=== PATIENT | female | born 1980 | race Caucasian/White ===

== ENCOUNTER 2018-01-18 22:40 | Emergency (ER) | payer BC, SELFPAY ==
[~2018-01-18] VITALS: Ht 165.1 cm; Wt 118.4 kg
[~2018-01-18 22:40] MED LIST: Elite Ob Dha S1 EACH; IBUP800 PO; LEVSOD75 PO; Synthroid75 MCG; Verotin-Gr Cap1 EACH PO
[2018-01-18] MEDS ORDERED: Adipex-P37.5 M1 PO (22:48)
== END 2018-01-18 23:15 | disposition home or self-care (01) ==
LOC: ER 22:40
DX: J34.9 Unspecified disorder of nose and nasal sinuses (principal); Z79.899 Other long term (current) drug therapy; W50.0XXA Accidental hit or strike by another person, initial encounter
CPT/HCPCS: 99282

== ENCOUNTER → 2020-03-14 | Outpatient (CLI) | payer BC ==
[~2020-03-14] MED LIST changes: +Adipex-P37.5 M1 PO
== END | disposition home or self-care (01) ==
LOC: LAB SHORT 10:30 → LAB 10:30
DX: R30.0 Dysuria (principal)
CPT/HCPCS: 87077; 87086; 87186

== ENCOUNTER 2023-10-02 16:08 | Emergency (ER) | payer BC ==
[~2023-10-02] VITALS: Ht 165.1 cm; Wt 93.0 kg
[~2023-10-02 16:08] MED LIST changes: +Cyclobenzaprine5 MG; +EUTHYROX75 MC1 PO; +GABA100; +GABA100 PO; +HYDACE10B; +JENCYCLA0.35 MG PO
[2023-10-02 16:13] VITALS: BP 126/107
[2023-10-02 16:29] LABS: BASOPHILS ABSOLUTE AUTO 0.03 K/mm3 (0.00-0.23); BASOPHILS PERCENT AUTO 0 % (0-2); EOSINOPHILS ABSOLUTE AUTO 0.03 K/mm3 (0.00-0.68); EOSINOPHILS PERCENT AUTO 0 % (0-6); Hematocrit 42.9 % (33.0-51.0); Hemoglobin 14.7 g/dL (11.5-16.0); IMMATURE GRAN ABSOLUTE AUTO 0.03 K/mm3 (0.00-0.10); IMMATURE GRAN PERCENT AUTO 0 % (0-1); LYMPHOCYTES ABSOLUTE AUTO 2.49 K/mm3 (0.84-5.20); LYMPHOCYTES PERCENT AUTO 21 % (21-46); MONOCYTES ABSOLUTE AUTO 0.65 K/mm3 (0.16-1.47); MONOCYTES PERCENT AUTO 5 % (4-13); Mean Corpuscular HGB 30.1 pg (26.0-34.0); Mean Corpuscular HGB Conc 34.3 g/dL (31.5-36.5); Mean Corpuscular Volume 88 fL (80-100); Mean Platelet Volume 11.8 fL (9.1-12.4); NEUTROPHILS ABSOLUTE AUTO 8.92 K/mm3 (1.96-9.15); NEUTROPHILS PERCENT AUTO 74 % (41-73); Platelet Count 286 K/mm3 (150-400); RDW Coefficient Variation 11.9 % (11.7-14.2); RDW Standard Deviation 38.1 fL (35.1-46.3); Red Blood Cell Count 4.88 M/mm3 (3.80-5.20); White Blood Cell Count 12.15 K/mm3 (4.00-11.30)
[2023-10-02] MEDS ORDERED: HYDR1TAB94 PO (16:33)
[2023-10-02 16:46] LABS: Albumin, Blood 3.4 g/dL (3.4-5.0); Albumin/Globulin Ratio 0.9 (0.8-1.8); Bilirubin, Total 0.7 mg/dL (0.1-1.0); Bun/Creatinine Ratio 17.9 (12.0-20.0); Calcium, Blood 8.8 mg/dL (8.5-10.1); Creatinine, Blood 0.78 mg/dL (0.40-1.00); Globulin, Blood 3.8 g/dL (2.2-4.0); Potassium, Blood 3.7 mmol/L (3.5-5.5); Total Protein, Blood 7.2 g/dL (6.4-8.2)
[2023-10-02] MEDS ORDERED: Prednisone20 MG PO (17:08)
[2023-10-02] MEDS ORDERED: Ativan0.5 MG PO (17:08)
== END 2023-10-02 17:26 | disposition home or self-care (01) ==
LOC: ER 16:08
PROVIDERS: Student in an Organized Health Care Education/Training Program
DX: M50.10 Cervical disc disorder with radiculopathy, unspecified cervical region (principal); Z79.890 Hormone replacement therapy; Z79.899 Other long term (current) drug therapy
CPT/HCPCS: 80053; 85025; 99283

== ENCOUNTER 2024-03-10 09:58 | Emergency (ER) | payer BC ==
[~2024-03-10] VITALS: Ht 165.1 cm; Wt 99.8 kg
[~2024-03-10 09:58] MED LIST changes: +Ativan0.5 MG PO; +HYDR1TAB94 PO; +Prednisone20 MG PO
[2024-03-10] MEDS ORDERED: HYDROmorphone HCl/Pf 1MG SYR IM ONE (10:40)
[2024-03-10] MEDS ORDERED: Diazepam 5 MG / ML 2ML SYR IM ONE (10:40)
[2024-03-10] MEDS ORDERED: Ketorolac Tromethamine 30mg Vial IM ONE (10:40)
[2024-03-10] MEDS ORDERED: Valium5 MG PO (11:48)
[2024-03-10] MEDS ORDERED: Prednisone20 MG PO (11:48)
[2024-03-10] MEDS ORDERED: HYDR1TAB94 PO (11:48)
[2024-03-10 12:10] VITALS: BP 140/96
== END 2024-03-10 12:12 | disposition home or self-care (01) ==
LOC: ER 09:58
DX: M54.41 Lumbago with sciatica, right side (principal); Z88.6 Allergy status to analgesic agent; Z79.890 Hormone replacement therapy; Z79.3 Long term (current) use of hormonal contraceptives
CPT/HCPCS: 96372; 99282-25; J1170; J1885; J3360